=== PATIENT | female | born 1995 | race Caucasian/White ===

== ENCOUNTER → 2017-12-24 | Outpatient (CLI) | payer OTHER ==
--- NOTE | 2017-12-24 17:53 | XR ---
EXAMINATION TYPE: XR facial bones limited DATE OF EXAM: 12/24/2017 COMPARISON: NONE HISTORY: 22-year-old female dental facial anomaly, lump felt under left jaw TECHNIQUE: 3 views FINDINGS: Orbits appear symmetrical. Visualized paranasal sinuses are relatively pneumatized. No specific bony deformity is seen along the mandible on either side. No periostitis or osteolysis. IMPRESSION: No radiographically apparent osseous abnormality of the facial bones or mandible.
== END | disposition home or self-care (01) ==
LOC: RADXRYALE 13:45
PROVIDERS: ATTEND Internal Medicine
DX: M26.9 Dentofacial anomaly, unspecified (principal)
CPT/HCPCS: 70140

== ENCOUNTER → 2020-04-23 | Outpatient (CLI) | payer BC ==
--- NOTE | 2020-04-23 17:02 | XR ---
EXAMINATION TYPE: XR KUB DATE OF EXAM: 04/23/2020 Comparison: None Clinical History: 24-year-old female [id number] FLANK PAIN LT Findings: Supine imaging limited for assessment of free air. Lung bases are clear. No dilated small bowel. Mild stool within the right side of the colon. Air extends distally into the sigmoid colon. No suspicious calcifications are clearly identified. Impression: No definite suspicious calcifications are seen radiographically. Nonobstructive bowel gas pattern. Mi ld stool in the right side of the abdomen.
== END | disposition home or self-care (01) ==
LOC: RADXRYALE 14:41
PROVIDERS: ATTEND Internal Medicine
DX: R10.9 Unspecified abdominal pain (principal)
CPT/HCPCS: 74018